=== PATIENT | male | born 2000 | race Caucasian/White ===

== ENCOUNTER 2023-05-12 23:27 | Emergency (ER) | payer SELFPAY ==
[2023-05-12 23:29] VITALS: BP 132/80; PULSE 96; RESP 18; TEMP 37.1; O2SAT 99
[2023-05-12 23:38] LABS: Glucose Point of Care 190 mg/dl (65-105)
--- NOTE | 2023-05-12 23:39 | ED.SYNCOPE ---
HPI - Syncope General Chief Complaint: Syncope Stated Complaint: Leg Numbness/fainting Source: patient Mode of arrival: ambulatory Limitations: no limitations History of Present Illness HPI narrative: 23-year-old male with DM on Insulin was sitting on the commode when -- he passed out and was found on the floor. Unsure as to how long he was on the floor. -- his girlfriend found him on the floor with the phone lying next. She shook him and he continued to be unresponsive following which she took his blood sugar which was noted to be 225. It took around 5 minutes for him to come around following which she was alert and oriented -- subsequently the patient has bilateral leg weakness. He had to be lifted up from the car and placed on chair and subsequently transferred to a bed. -- Bilaterally decreased sensation both lower extremities with numbness and tingling -- no fecal or urinary incontinence on arrival to the ER the patient was noted to have a blood sugar of 190. the patient did not want to come to the ER but was compelled by his family members. The patient does not want to do any testing including CT scan, EEG and blood work. Patient's mother has a history of pseudoseizures. MD complaint: loss of consciousness Onset (ago): hour(s) ( 1 hour before coming to the ER) Prodromal symptoms: none Witnessed: No Context: after urination Injuries sustained associated with event: none Current symptoms: other ( bilateral lower extremity weakness and decreased sensation with numbness) Treatments prior to arrival: none Related Data Home Medications Medication Instructions Recorded Confirmed albuterol sulfate 90 mcg/actuation 2 puff inhalation QID PRN 05/12/23 05/12/23 aerosol inhaler (Proventil HFA) Shortness Of Breath cetirizine 10 mg tablet (Zyrtec) 10 mg PO DAILY 05/12/23 05/12/23 insulin degludec 100 unit/mL (3 20 unit subcut HS 05/12/23 05/12/23 mL) subcutaneous pen (Tresiba FlexTouch U-100 insulin) insulin lispro 100 unit/mL 4 unit subcut BIDWMEAL 05/12/23 05/12/23 subcutaneous pen (Humalog KwikPen (U-100) Insulin) metformin 1,000 mg tablet 1,000 mg PO BID 07/12/23 07/12/23 montelukast 10 mg tablet 10 mg PO DAILY 05/12/23 05/12/23 (Singulair) Allergies Allergy/AdvReac Type Severity Reaction Status Date / Time Penicillins Allergy Unknown Verified 05/12/23 23:39 Sulfa (Sulfonamide Allergy Unknown Verified 05/12/23 23:39 Antibiotics) sulfamethoxazole Allergy Unknown Verified 05/12/23 23:39 [From ] trimethoprim [From ] Allergy Unknown Verified 05/12/23 23:39 Review of Systems Review of Systems: All systems reviewed & are unremarkable except as noted in HPI and below Constitutional: Constitutional: Reports as per HPI and Reports no additional constitutional complaints Eyes: Eyes: Reports as per HPI and Reports no additional eye complaints ENT: Reports system reviewed and no additional complaints, except as documented and Reports as per HPI Cardiovascular: Cardiovascular: Reports as per HPI and Reports no additional cardiovascular complaints Respiratory: Respiratory: Reports as per HPI and Reports no additional respiratory complaints Gastrointestinal: Gastrointestinal: Reports as per HPI and Reports no additional gastrointestinal complaints Genitourinary: Genitourinary: Reports no additional male genitourinary complaints and Reports as per HPI Musculoskeletal: Musculoskeletal: Reports no additional musculoskeletal complaints and Reports as per HPI Integumentary/Breasts: Skin/Breast: Reports system reviewed and no additional complaints, except as docu and Reports as per HPI Neurologic: Reports numbness and Reports weakness Psychiatric: Psychiatric: Reports no additional psychiatric complaints Endocrine: Endocrine: Reports no additional endocrine complaints Hematologic/Lymphatic: Hematologic/Lymphatic: Reports no additional hematologic/lymphatic complaints and Reports as
[2023-05-12 23:42] VITALS: O2SAT 99
[2023-05-12 23:55] VITALS: BP 119/83; PULSE 96
[2023-05-12 23:58] VITALS: BP 139/98; PULSE 106
--- NOTE | 2023-05-13 00:03 | PC.NURSE ---
After ERP Dr Buchanan examined pt. pt refused any more tests or exams. Orthostatic performed and WNL, Pt states he is going to refuse any tests or CT's due to fact he can't afford tests and has no insurance. This RN and Dr Buchanan speaking c pt and pts. family about need for further testing and CT due to syncope episode at home and continued numbness/tingling in his bilat lower extremities.
[2023-05-13 00:13] LABS: Appearance Urine Clear (Clear); Bilirubin Urine Negative (Negative); Blood Urine Negative (Negative); Color Urine Light Yellow (Yellow); Glucose Urine UA 1+ (Negative); Ketones Urine 1+ (Negative); Leukocyte Esterase Ur Negative LEU/UL (Negative); Nitrate Urine Negative (Negative); Protein Urine Negative (Negative); Specific Grav Ur 1.015 (1.010-1.020); pH Urine 6.5 (5.0-8.0)
[2023-05-13 00:17] LABS: Add Urine Microscopic? YES; Bacteria Urine Trace /hpf; RBC Urine 0-2 /hpf (0-2); WBC Urine 0-3 /hpf (0-3)
--- NOTE | 2023-05-13 00:18 | PC.NURSE ---
After lengthy discussion c pt. about need for testing, he still refuses any CT scan, labs, or EKG. Pt mother wants test done but pt is adament to go home and see his Dr tomorrow and talk to boss about insurance. Pt signed AMA form p DR Buchanan explained risks/benefits to pt in detail.
--- NOTE | 2023-05-13 00:18 | PC.NURSE ---
mother concern about pt falling at night trying to go to bathroom, asked for urinal to go home. 3 urinals given to mother
--- NOTE | 2023-05-13 00:25 | PC.NURSE ---
Pt unable to fully stand or walk on legs to get into w/c for d/c. He is able to stand and pivot using body strength and states he is slowly having feeling back in his lower extremities. He states if he isn't doing or feeling any better tomorrow he will return to ER for testing but wants to sign AMA now because he thinks he is doing better. Pt left via w/c c family to car.
[2023-05-13 00:30] VITALS: BP 122/74; PULSE 85; RESP 18; O2SAT 99
== END 2023-05-13 00:30 | disposition left against medical advice (07) ==
PROVIDERS: Emergency Provider Internal Medicine Critical Care Medicine
DX: R55 Syncope and collapse (principal); G82.20 Paraplegia, unspecified; F44.9 Dissociative and conversion disorder, unspecified; E11.9 Type 2 diabetes mellitus without complications; Z79.4 Long term (current) use of insulin
CPT/HCPCS: 81001; 82948; 99283